=== PATIENT | female | born 1950 | race Caucasian/White ===

== ENCOUNTER 2016-10-05 09:00 | Day surgery (SDC) | payer OTHER ==
[2016-10-05] MEDS ORDERED: LACTATED RINGERS 1,000 ML IV ONE (09:12)
[2016-10-05] MEDS ORDERED: fentaNYL 250 MCG/5 ML VIAL IVP ONE (09:56)
[2016-10-05] MEDS ORDERED: MIDAZOLAM 2 MG/2 ML VIAL IVP ONE (09:56)
== END 2016-10-05 09:01 | disposition home or self-care (01) ==
PROC: 0DJD8ZZ Inspection of Lower Intestinal Tract, Via Natural or Artificial Opening Endoscopic (ICD-10-PCS; principal; 2016-10-05 11:15)
DX: Z12.11 Encounter for screening for malignant neoplasm of colon (principal); K64.8 Other hemorrhoids; E11.9 Type 2 diabetes mellitus without complications; I10 Essential (primary) hypertension; K21.9 Gastro-esophageal reflux disease without esophagitis; F32.9 Major depressive disorder, single episode, unspecified
CPT/HCPCS: 45378; J3010; J7120

== ENCOUNTER 2017-10-04 09:18 | Outpatient (CLI) | payer OTHER ==
--- NOTE | 2017-10-06 15:17 | DEXA Report ---
DEXA SCAN: 10/04/2017 CLINICAL INDICATION: Postmenopausal. TECHNIQUE: Dual energy x-ray absorptiometry (DXA) was performed on a [employer] system. Regions measured are the AP spine, femoral neck, and, if needed, forearm. COMPARISON: None. In accordance with the International Society for Clinical Densitometry (ISCD) guidelines, data from previous exams may be reanalyzed using current recommendations and techniques. This is done to allow a more accurate basis for comparison with the current study. FINDINGS The data for the lumbar spine is as follows: REGION BMD (g/cm/cm) T-SCORE Z-SCORE L1 0.842 -2.4 -0.8 L2 0.836 -3.0 -1.5 L3 0.883 -2.6 -1.1 L4 0.919 -2.3 -0.8 TOTAL L1-L4 0.876 -2.5 -1.0 NOTE: All evaluable vertebrae are used for classification. The data for the hip is as follows: REGION BMD (g/cm/cm) T-SCORE Z-SCORE Neck 0.804 -1.7 -0.2 TOTAL 0.777 -1.8 -0.6 NOTE: The femoral neck or total proximal femur, whichever is lowest, is used for classification. IMPRESSION THE WHO CLASSIFICATION BASED ON THE INTERNATIONAL REFERENCE STANDARD IS OSTEOPOROSIS. THE FRACTURE RISK IS HIGH. RECOMMENDATION: Patients with diagnosis of osteoporosis or osteopenia should have regular bone mineral density assessment. For those eligible for Medicare, routine testing is allowed once every 2 years. Testing frequency can be increased for patients who have rapidly progressing disease or for those who are receiving medical therapy to restore bone mass. COMMENT: World Health Organization (WHO) definitions for osteoporosis and osteopenia: NORMAL BMD: T-score at 1.0 or higher, fracture risk is low. OSTEOPENIA BMD: T-score between 1.0 and -2.5, fracture risk is increased. OSTEOPOROSIS BMD: T-score at 2.5 or lower, fracture risk high. National Osteoporosis Foundation recommends: 1. Obtain adequate dietary calcium (at least 1200 mg per day) and vitamin D (400 -800 international units per day). 2. Participate, as appropriate, in regular weightbearing and muscle- strengthening exercise. 3. Avoid tobacco use and reduce alcohol and caffeine intake. 4. For more detailed information see the website at www.NOF.org. TD: 10/04/2017 12:59 [place]
== END 2017-10-04 09:19 | disposition home or self-care (01) ==
LOC: DI 09:18
PROVIDERS: ATTEND Family Medicine
DX: M81.0 Age-related osteoporosis without current pathological fracture (principal)
CPT/HCPCS: 77080

== ENCOUNTER 2017-10-15 08:00 | Outpatient (CLI) | payer OTHER | END 2017-10-15 08:01 | disposition home or self-care (01) | LOC: LAB.WCP 08:00 | PROVIDERS: ATTEND Family Medicine | DX: M81.0 Age-related osteoporosis without current pathological fracture (principal) | CPT/HCPCS: 36415; 82306 ==

== ENCOUNTER 2018-02-28 08:00 | Outpatient (CLI) | payer OTHER ==
[2018-02-28 12:31] LABS: ALBUMIN/GLOBULIN RATIO 1.3 (1.0-2.2); BILIRUBIN,TOTAL 0.4 mg/dL (0.2-1.0); CALCIUM 9.1 mg/dL (8.5-10.3); CREATININE 0.6 mg/dL (0.4-1.0); TOTAL PROTEIN 7.1 g/dL (6.7-8.2)
[2018-02-28 12:36] LABS: HB2 TOTAL 15.3 g/dL; HEMOGLOBIN A1C 0.73 g/dL; HEMOGLOBIN A1C % 6.5 % (4.6-6.2)
== END 2018-02-28 08:01 | disposition home or self-care (01) ==
LOC: LAB.WCP 08:00
PROVIDERS: ATTEND Family Medicine
DX: I10 Essential (primary) hypertension (principal); E11.9 Type 2 diabetes mellitus without complications; E78.9 Disorder of lipoprotein metabolism, unspecified
CPT/HCPCS: 36415; 80053; 83036

== ENCOUNTER 2018-04-07 08:00 | Outpatient (CLI) | payer OTHER ==
[2018-04-07 12:54] LABS: THYROID STIMULATING HORMONE 1.98 uIU/mL (0.34-5.60)
== END 2018-04-07 08:01 | disposition home or self-care (01) ==
LOC: LAB.WCP 08:00
PROVIDERS: ATTEND Psychiatry & Neurology Neurology
DX: R26.89 Other abnormalities of gait and mobility (principal)
CPT/HCPCS: 36415; 82607; 82746; 84425; 84443; 84446

== ENCOUNTER 2018-06-27 13:26 | Outpatient (CLI) | payer OTHER | END 2018-06-27 13:27 | disposition home or self-care (01) | LOC: LAB.WCP 13:26 | PROVIDERS: ATTEND Psychiatry & Neurology Neurology | DX: E53.8 Deficiency of other specified B group vitamins (principal) | CPT/HCPCS: 36415; 82607; 83921 ==

== ENCOUNTER 2018-10-19 08:47 | Outpatient (CLI) | payer OTHER ==
[2018-10-19 12:43] LABS: ALBUMIN 4.2 g/dL (3.2-5.5); ALBUMIN/GLOBULIN RATIO 1.5 (1.0-2.2); ALKALINE PHOSPHATASE 41 IU/L (42-121); ALT ALANINE AMINOTRANSFERASE 21 IU/L (10-60); AST ASPARTATE AMINOTRANSFERASE 18 IU/L (10-42); BILIRUBIN,TOTAL 0.6 mg/dL (0.2-1.0); BUN - BLOOD UREA NITROGEN 16 mg/dL (6-20); CALCIUM 9.5 mg/dL (8.5-10.3); CARBON DIOXIDE - CO2 29 mmol/L (21-32); CHLORIDE 98 mmol/L (101-111); CHOL/HDL RATIO 2.3 (<4.4); CHOLESTEROL 165 mg/dL; CREATININE 0.6 mg/dL (0.4-1.0); GFR - MDRD 100 (>89); GLUCOSE 130 mg/dL (70-100); HDL CHOLESTEROL 73 mg/dL; LDL CHOLESTEROL,CALCULATED 67 mg/dL; LDL/HDL RATIO 0.9 (<4.4); SODIUM 135 mmol/L (135-145); VLDL CHOLESTEROL 25 mg/dL
[2018-10-20 19:07] LABS: HB2 TOTAL 14.7 g/dL; HEMOGLOBIN A1C 0.66 g/dL; HEMOGLOBIN A1C % 6.3 % (4.6-6.2)
== END 2018-10-19 23:59 | disposition home or self-care (01) ==
LOC: LAB.WCP 08:47
PROVIDERS: ATTEND Family Medicine
DX: M81.0 Age-related osteoporosis without current pathological fracture (principal); I10 Essential (primary) hypertension; E11.9 Type 2 diabetes mellitus without complications; E78.5 Hyperlipidemia, unspecified
CPT/HCPCS: 36415; 80053; 80061; 82043; 83036; 83721

== ENCOUNTER 2018-12-14 12:00 | Outpatient (CLI) | payer OTHER ==
--- NOTE | 2018-12-14 16:55 | Mammography Report ---
Reason: ANNUAL SCREENING Procedure Date: 12/14/2018 Accession Number: [id number] / [id number] Procedure: KEVEN - Screening Mammo w/Anish CPT Code: FULL RESULT: EXAM: Screening Mammo w/Anish DATE: 12/14/2018 12:47 PM CLINICAL HISTORY: Routine screening. No reported personal history of breast cancer. Family history breast cancer in sister age 62. TECHNIQUE: Bilateral CC and MLO views were obtained. COMPARISON: 08/04/2017 through 02/27/2014 FINDINGS: The breasts demonstrate scattered fibroglandular densities bilaterally. Bilateral breasts: There are no suspicious masses, calcifications or areas of distortion. IMPRESSION: Negative examination RECOMMENDATION: Routine annual screening unless otherwise clinically indicated. BI-RADS CATEGORY 1: Negative STANDARD QUALIFYING STATEMENTS: 1. This examination was not reviewed with the aid of Computer-Aided Detection (CAD). 2. A negative or benign imaging report should not preclude biopsy if clinically suspicious findings are present. 3. Dense breasts may obscure an underlying neoplasm. 4. This examination was reviewed with the aid of 3D breast imaging (tomosynthesis).
== END 2018-12-14 12:01 | disposition home or self-care (01) ==
LOC: DI 12:00
DX: Z12.31 Encounter for screening mammogram for malignant neoplasm of breast (principal); Z80.3 Family history of malignant neoplasm of breast
CPT/HCPCS: 77063; 77067

== ENCOUNTER 2019-08-17 07:00 | Outpatient (CLI) | payer OTHER ==
[2019-08-17 13:06] LABS: CREATININE 0.5 mg/dL (0.4-1.0)
[2019-08-17 13:32] LABS: HB2 TOTAL 13.6 g/dL; HEMOGLOBIN A1C 0.68 g/dL; HEMOGLOBIN A1C % 6.7 % (4.6-6.2)
== END 2019-08-17 23:59 | disposition home or self-care (01) ==
LOC: LAB.WCP 07:00
PROVIDERS: ATTEND Family Medicine
DX: Z00.00 Encounter for general adult medical examination without abnormal findings (principal); M81.0 Age-related osteoporosis without current pathological fracture; I10 Essential (primary) hypertension; E11.9 Type 2 diabetes mellitus without complications; E78.5 Hyperlipidemia, unspecified
CPT/HCPCS: 36415; 80048; 82043; 82570; 83036

== ENCOUNTER 2019-12-06 08:00 | Outpatient (CLI) | payer MEDICARE, OTHER ==
[2019-12-06 12:41] LABS: BUN - BLOOD UREA NITROGEN 13 mg/dL (6-20); CALCIUM 9.3 mg/dL (8.5-10.3); CARBON DIOXIDE - CO2 27 mmol/L (21-32); CHLORIDE 94 mmol/L (101-111); CHOL/HDL RATIO 2.4 (<4.4); CHOLESTEROL 142 mg/dL; CREATININE 0.6 mg/dL (0.4-1.0); GFR - MDRD 100 (>89); GLUCOSE 118 mg/dL (70-100); HDL CHOLESTEROL 58 mg/dL; LDL CHOLESTEROL,CALCULATED 59 mg/dL; SODIUM 130 mmol/L (135-145); VLDL CHOLESTEROL 25 mg/dL
[2019-12-06 12:49] LABS: CREATININE,URINE 54.1 mg/dL; MICROALBUM/CREATININE RATIO,UR 12.9 ug/mg (<30.0); MICROALBUMIN,URINE 0.7 mg/dL (0-300.0)
[2019-12-06 13:24] LABS: HB2 TOTAL 13.6 g/dL; HEMOGLOBIN A1C 0.66 g/dL; HEMOGLOBIN A1C % 6.6 % (4.6-6.2)
== END 2019-12-06 23:59 | disposition home or self-care (01) ==
LOC: LAB.WCP 08:00
PROVIDERS: ATTEND Family Medicine
DX: I10 Essential (primary) hypertension (principal); G47.00 Insomnia, unspecified; E11.9 Type 2 diabetes mellitus without complications
CPT/HCPCS: 36415; 80048; 80061; 82043; 82570; 83036; 83721

== ENCOUNTER 2019-12-20 07:00 | Outpatient (CLI) | payer MEDICARE | END 2019-12-20 23:59 | disposition home or self-care (01) | LOC: LAB.WCP 07:00 | PROVIDERS: ATTEND Family Medicine | DX: E87.1 Hypo-osmolality and hyponatremia (principal) | CPT/HCPCS: 84300 ==

== ENCOUNTER 2020-01-01 13:02 | Outpatient (CLI) | payer MEDICARE ==
--- NOTE | 2020-01-01 13:59 | Mammography Report ---
Reason: CHANGES IN NIPPLE Procedure Date: 01/01/2020 Accession Number: [id number] / [id number] Procedure: KEVEN - Diagnostic Dig Bilat CPT Code: Final Report FULL RESULT: EXAM: Diagnostic Dig Bilat DATE: 01/01/2020 1:52 PM CLINICAL HISTORY: Diagnostic examination. Changes in the nipple on physical examination with itching/pain on the right. TECHNIQUE: (B) - Bilateral CC and MLO views were obtained. Right ML images are obtained. COMPARISON: 12/14/2018 through 05/01/2015 PARENCHYMAL PATTERN: (F) - The breast(s) demonstrate(s) diffuse fatty replacement. FINDINGS: There are no suspicious masses, calcifications, or areas of distortion. IMPRESSION: Negative examination. BI-RADS category 1. RECOMMENDATION: (ANNUAL) - Recommend routine annual screening mammography. BI-RADS CATEGORY: (1) - Negative. STANDARD QUALIFYING STATEMENTS: 1. This examination was not reviewed with the aid of Computer-Aided Detection (CAD). 2. A negative or benign imaging report should not preclude biopsy if clinically suspicious findings are present. 3. Dense breasts may obscure an underlying neoplasm. 4. This examination was reviewed with the aid of 3D breast imaging (tomosynthesis).
== END 2020-01-01 13:03 | disposition home or self-care (01) ==
LOC: DI 13:02
PROVIDERS: ATTEND Family Medicine
DX: N64.59 Other signs and symptoms in breast (principal); N64.52 Nipple discharge
CPT/HCPCS: 77066

== ENCOUNTER 2020-01-02 08:00 | Outpatient (CLI) | payer MEDICARE ==
[2020-01-02 16:49] LABS: CALCIUM 9.5 mg/dL (8.5-10.3); CREATININE 0.5 mg/dL (0.4-1.0)
== END 2020-01-02 23:59 | disposition home or self-care (01) ==
LOC: LAB.WCP 08:00
PROVIDERS: ATTEND Psychiatry & Neurology Neurology
DX: G25.3 Myoclonus (principal); E87.1 Hypo-osmolality and hyponatremia
CPT/HCPCS: 36415; 80048; 84300

== ENCOUNTER 2020-07-18 08:00 | Outpatient (CLI) | payer MEDICARE ==
[2020-07-18 12:14] LABS: ALBUMIN 4.1 g/dL (3.2-5.5); ALBUMIN/GLOBULIN RATIO 1.3 (1.0-2.2); ALKALINE PHOSPHATASE 44 IU/L (42-121); ALT ALANINE AMINOTRANSFERASE 16 IU/L (10-60); AST ASPARTATE AMINOTRANSFERASE 14 IU/L (10-42); BASOPHILS # (AUTO) 0.1 10^3/uL (0.0-0.1); BASOPHILS % (AUTO) 0.7 %; BILIRUBIN,TOTAL 0.6 mg/dL (0.2-1.0); BUN - BLOOD UREA NITROGEN 15 mg/dL (6-20); CALCIUM 9.6 mg/dL (8.5-10.3); CARBON DIOXIDE - CO2 28 mmol/L (21-32); CHLORIDE 97 mmol/L (101-111); CHOL/HDL RATIO 2.4 (<4.4); CHOLESTEROL 170 mg/dL; CREATININE 0.5 mg/dL (0.4-1.0); EOSINOPHILS # (AUTO) 0.1 10^3/uL (0.0-0.7); GLUCOSE 125 mg/dL (70-100); HDL CHOLESTEROL 72 mg/dL; HGB - HEMOGLOBIN 14.1 g/dL (12.0-16.0); LDL CHOLESTEROL,CALCULATED 80 mg/dL; LDL/HDL RATIO 1.1 (<4.4); LYMPHOCYTES # (AUTO) 0.9 10^3/uL (1.5-3.5); LYMPHOCYTES % (AUTO) 13.6 %; MEAN CORPUSCULAR HEMOGLOBIN 29.3 pg (27.0-31.0); MEAN CORPUSCULAR VOLUME 91.5 fL (81.0-99.0); MEAN PLATELET VOLUME 10.4 fL (7.9-10.8); MONOCYTES # (AUTO) 0.4 10^3/uL (0.0-1.0); MONOCYTES % (AUTO) 5.7 %; NEUTROPHILS # (AUTO) 5.3 10^3/uL (1.5-6.6); NEUTROPHILS % (AUTO) 77.7 %; PLT - PLATELET COUNT 380 10^3/uL (130-450); RED BLOOD COUNT 4.81 10^6/uL (4.20-5.40); RED CELL DISTRIBUTION WIDTH 12.3 % (12.0-15.0); SODIUM 137 mmol/L (135-145); TOTAL PROTEIN 7.3 g/dL (6.7-8.2); VLDL CHOLESTEROL 18 mg/dL; WHITE BLOOD COUNT 6.8 x10^3/uL (4.8-10.8)
== END 2020-07-18 23:59 | disposition home or self-care (01) ==
LOC: LAB.WCP 08:00
PROVIDERS: ATTEND Family Medicine
DX: E87.1 Hypo-osmolality and hyponatremia (principal); E11.9 Type 2 diabetes mellitus without complications; I10 Essential (primary) hypertension; E78.5 Hyperlipidemia, unspecified
CPT/HCPCS: 36415; 80053; 80061; 83721; 84443; 85025

== ENCOUNTER 2021-01-23 07:58 | Outpatient (CLI) | payer MEDICARE ==
[2021-01-23 12:30] LABS: CALCIUM 9.5 mg/dL (8.5-10.3); CREATININE 0.6 mg/dL (0.4-1.0); POTASSIUM 4.2 mmol/L (3.5-5.0)
[2021-01-23 12:42] LABS: CREATININE,URINE 77.2 mg/dL; MICROALBUM/CREATININE RATIO,UR 3.9 ug/mg (<30.0); MICROALBUMIN,URINE 0.3 mg/dL (0-300.0)
[2021-01-23 18:19] LABS: ESTIMATED AVERAGE GLUCOSE 134 mg/dL (70-100); HEMOGLOBIN A1c% 6.3 % (4.27-6.07)
== END 2021-01-23 23:59 | disposition home or self-care (01) ==
LOC: LAB.WCP 07:58
PROVIDERS: ATTEND Family Medicine
DX: E11.9 Type 2 diabetes mellitus without complications (principal); I10 Essential (primary) hypertension; E78.5 Hyperlipidemia, unspecified
CPT/HCPCS: 36415; 80048; 82043; 82570; 83036

== ENCOUNTER 2021-02-04 09:24 | Outpatient (CLI) | payer MEDICARE ==
--- NOTE | 2021-02-06 08:30 | Mammography Report ---
BILATERAL DIGITAL SCREENING MAMMOGRAM 3D/2D: 02/04/2021 CLINICAL: Family history of breast cancer. Routine screening. Comparison is made to exams dated: 01/01/2020 mammogram, 12/14/2018 mammogram, 08/04/2017 mammogram, 08/2016 mammogram, 05/01/2015 mammogram, and 02/27/2014 mammogram - [facility]. There are scattered fibroglandular elements in both breasts. There is a new oval equal density focal asymmetry with an indistinct and circumscribed margin in the right breast at 3 o'clock anterior depth. No other significant masses, calcifications, or other findings are seen in either breast. IMPRESSION: INCOMPLETE: NEEDS ADDITIONAL IMAGING EVALUATION The new oval equal density focal asymmetry in the right breast is indeterminate. Mediolateral and sp ot compression views as well as additional views with possible ultrasound are recommended. This exam was interpreted at Station ID: [id number]. NOTE: For mammograms, a report in lay terms will be sent to the patient. Approximately 15% of breast malignancies will not be visualized mammographically. In the management of a palpable breast mass, a negative mammogram must not discourage biopsy of a clinically suspicious lesion. Electronically Signed By: Sandip Stiles M.D. ddp/penrad:02/04/2021 09:58:01 ACR BI-RADS Category 0: Incomplete 3340F PARENCHYMAL PATTERN: (A) - The breast(s) demonstrate(s) scattered fibroglandular densities. BI-RADS CATEGORY: (0) - 0 Mammo and [place] [id number] Immediate follow-up LATERALITY: (B)
== END 2021-02-04 09:25 | disposition home or self-care (01) ==
LOC: DI.N 09:24
DX: Z12.31 Encounter for screening mammogram for malignant neoplasm of breast (principal); R92.8 Other abnormal and inconclusive findings on diagnostic imaging of breast; Z80.3 Family history of malignant neoplasm of breast

== ENCOUNTER 2021-02-28 10:44 | Outpatient (CLI) | payer MEDICARE ==
--- NOTE | 2021-02-28 14:56 | DEXA Report ---
PROCEDURE: Dexa Spine and/or Hip INDICATIONS: POST MENOPAUSAL TECHNIQUE: Dual energy x-ray absorptiometry (DXA) was performed on a [employer] System. Regions measur ed are the AP Spine, femoral neck, and if needed forearm. COMPARISON: 10/04/2017 FINDINGS: Lumbar Spine: Bone Mineral Density 0.895 g/cm/cm,T score -2.4, osteopenia Left Femoral Neck: Bone Mineral Density 0.754 g/cm/cm, T score -2.0, osteopenia (T score greater or equal to -1.0: NORMAL) (T score from -1.1 to -2.4: OSTEOPENIA) (T score less than or equal to -2.5 to: OSTEOPOROSIS) Impression: OSTEOPENIA. Patient is at increased risk for fracture. Patients with diagnosis of osteoporosis or osteopenia should have regular bone mineral density assess ment. For those eligible for Medicare, routine testing is allowed once every 2 years. Testing frequ ency can be increased for patients who have rapidly progressing disease or for those who are receivin g medical therapy to restore bone mass. Reviewed by: Adrien Do MD on 02/28/2021 2:54 PM PDT Approved by: Adrien Do MD on 02/28/2021 2:54 PM PDT Station ID: [id number]
== END 2021-02-28 10:45 | disposition home or self-care (01) ==
LOC: DI 10:44
PROVIDERS: ATTEND Physician Assistant Medical
DX: M85.89 Other specified disorders of bone density and structure, multiple sites (principal)

== ENCOUNTER 2021-03-10 11:14 | Outpatient (CLI) | payer MEDICARE ==
--- NOTE | 2021-03-11 07:56 | Ultrasound Report ---
LIMITED ULTRASOUND OF RIGHT BREAST: 03/10/2021 CLINICAL: Patient returns today to evaluate a focal asymmetry in the right breast. Comparison is made to exams dated: 03/10/2021 mammogram, 02/04/2021 mammogram, 01/01/2020 mammogram, 11/26 mammogram, 08/04/2017 mammogram, and 07/08/2016 mammogram - [facility]. Color flow and real-time ultrasound of the right breast 3 o'clock, and retroareolar regions were perf ormed. Ibrahim scale images of the real-time examination were reviewed. There is a 0.4 cm x 0.2 cm x 0.2 cm oval cyst in the right breast at 3 o'clock anterior depth. This oval cyst is hypoechoic with a well-defined boundary and no posterior acoustic shadowing or enhanceme nt. Color flow imaging demonstrates that there is no vascularity present. IMPRESSION: PROBABLY BENIGN The 0.4 cm oval cyst in the right breast is consistent with a complicated cyst and is probably benign . A follow-up mammogram and an ultrasound in 6 months is recommended to demonstrate stability. Exam findings were conveyed to the patient. This exam was interpreted at Station ID: [id number]. Electronically Signed By: Hal De La Cruz M.D. slc/:03/10/2021 12:53:04 Ultrasound BI-RADS: 3 Probably benign BI-RADS CATEGORY: (3) - 3 Mammo and [place] [id number] 6 month follow-up LATERALITY: (B)
--- NOTE | 2021-03-11 07:56 | Mammography Report ---
UNILATERAL RIGHT DIGITAL DIAGNOSTIC MAMMOGRAM 3D/2D: 03/10/2021 CLINICAL: Patient returns today to evaluate a focal asymmetry in the right breast. Comparison is made to exams dated: 02/04/2021 mammogram, 01/01/2020 mammogram, 12/14/2018 mammogram, 08/04/2017 mammogram, 07/08/2016 mammogram, and 05/01/2015 mammogram - [facility]. The t issue of right breast is predominantly fatty. There is a 0.4 cm oval equal density focal asymmetry with a circumscribed margin in the right breast at 3 o'clock anterior depth. No other significant masses or calcifications are seen in the breast. IMPRESSION: INCOMPLETE: NEEDS ADDITIONAL IMAGING EVALUATION The 0.4 cm oval equal density focal asymmetry in the right breast resembles a cyst and is indetermina te. A targeted ultrasound is recommended and will immediately follow. This exam was interpreted at Station ID: [id number]. NOTE: For mammograms, a report in lay terms will be sent to the patient. Approximately 15% of breast malignancies will not be visualized mammographically. In the management of a palpable breast mass, a negative mammogram must not discourage biopsy of a clinically suspicious lesion. Electronically Signed By: Hal De La Cruz M.D. slc/:03/10/2021 12:50:20 ACR BI-RADS Category 0: Incomplete 3340F PARENCHYMAL PATTERN: (F) - The breast(s) demonstrate(s) diffuse fatty replacement. BI-RADS CATEGORY: (0) - 0 Ultrasound [id number] Immediate follow-up LATERALITY: (B)
== END 2021-03-10 11:15 | disposition home or self-care (01) ==
LOC: DI 11:14
PROVIDERS: ATTEND Physician Assistant Medical
DX: N60.01 Solitary cyst of right breast (principal)

== ENCOUNTER 2021-07-23 09:53 | Outpatient (CLI) | payer MEDICARE ==
[2021-07-23 12:20] LABS: BASOPHILS # (AUTO) 0.1 10^3/uL (0.0-0.1); BASOPHILS % (AUTO) 0.7 %; EOSINOPHILS # (AUTO) 0.1 10^3/uL (0.0-0.7); EOSINOPHILS % (AUTO) 1.1 %; LYMPHOCYTES # (AUTO) 1.5 10^3/uL (1.5-3.5); LYMPHOCYTES % (AUTO) 20.6 %; MEAN CORPUSCULAR HEMOGLOBIN 29.4 pg (27.0-31.0); MEAN CORPUSCULAR HGB CONC 32.6 g/dL (32.0-36.0); MEAN CORPUSCULAR VOLUME 90.3 fL (81.0-99.0); MEAN PLATELET VOLUME 10.2 fL (7.9-10.8); MONOCYTES # (AUTO) 0.6 10^3/uL (0.0-1.0); MONOCYTES % (AUTO) 7.5 %; NEUTROPHILS # (AUTO) 5.1 10^3/uL (1.5-6.6); NEUTROPHILS % (AUTO) 69.7 %; PLT - PLATELET COUNT 414 10^3/uL (130-450); RED BLOOD COUNT 4.76 10^6/uL (4.20-5.40); RED CELL DISTRIBUTION WIDTH 12.6 % (12.0-15.0); WHITE BLOOD COUNT 7.3 x10^3/uL (4.8-10.8)
[2021-07-23 13:18] LABS: ALBUMIN 4.3 g/dL (3.2-5.5); ALBUMIN/GLOBULIN RATIO 1.4 (1.0-2.2); ALKALINE PHOSPHATASE 46 IU/L (42-121); ALT ALANINE AMINOTRANSFERASE 19 IU/L (10-60); AST ASPARTATE AMINOTRANSFERASE 15 IU/L (10-42); BILIRUBIN,TOTAL 0.6 mg/dL (0.2-1.0); BUN - BLOOD UREA NITROGEN 13 mg/dL (6-20); CALCIUM 9.7 mg/dL (8.5-10.3); CARBON DIOXIDE - CO2 30 mmol/L (21-32); CHLORIDE 98 mmol/L (101-111); CHOL/HDL RATIO 2.6 (<4.4); CHOLESTEROL 183 mg/dL; CREATININE 0.5 mg/dL (0.4-1.0); GFR - MDRD 122 (>89); GLUCOSE 133 mg/dL (70-100); HDL CHOLESTEROL 70 mg/dL; LDL CHOLESTEROL,CALCULATED 85 mg/dL; LDL/HDL RATIO 1.2 (<4.4); POTASSIUM 4.2 mmol/L (3.5-5.0); SODIUM 138 mmol/L (135-145); TOTAL PROTEIN 7.4 g/dL (6.7-8.2); TRIGLYCERIDES 140 mg/dL; VLDL CHOLESTEROL 28 mg/dL
[2021-07-23 13:22] LABS: THYROID STIMULATING HORMONE 1.75 uIU/mL (0.34-5.60)
[2021-07-23 13:27] LABS: ESTIMATED AVERAGE GLUCOSE 143 mg/dL (70-100); HEMOGLOBIN A1c% 6.6 % (4.27-6.07)
[2021-07-23 18:34] LABS: CREATININE,URINE 34.6 mg/dL
[2021-07-23 19:05] LABS: MICROALBUMIN,URINE < 0.2 mg/dL (0-300.0)
== END 2021-07-23 23:59 | disposition home or self-care (01) ==
LOC: LAB.WCP 09:53
PROVIDERS: ATTEND Physician Assistant Medical
DX: E11.9 Type 2 diabetes mellitus without complications (principal); I10 Essential (primary) hypertension
CPT/HCPCS: 36415; 80053; 80061; 82043; 82570; 83036; 83721; 84443; 85025

== ENCOUNTER 2021-10-08 12:29 | Outpatient (CLI) | payer MEDICARE ==
--- NOTE | 2021-10-09 07:25 | Ultrasound Report ---
LIMITED ULTRASOUND OF RIGHT BREAST: 10/08/2021 CLINICAL: Short term follow up of the right breast. Patient returns for a 6 month follow up of the ri ght breast. Comparison is made to exams dated: 10/08/2021 mammogram, 03/10/2021 ultrasound, 03/10/2021 mammogram, mammogram, 01/01/2020 mammogram, and 12/14/2018 mammogram - [facility]. Color flow and real-time ultrasound of the right breast 3 o'clock, and retroareolar regions were perf ormed. Ibrahim scale images of the real-time examination were reviewed. There is a 0.4 cm x 0.2 cm x 0.2 cm oval cyst in the right breast at 3 o'clock in the retroareolar re gion. This oval cyst is hypoechoic with a well-defined boundary and no posterior acoustic shadowing or enhancement. This abnormality is not significantly changed. Color flow imaging demonstrates that there is no vascularity present. IMPRESSION: PROBABLY BENIGN The 0.4 cm x 0.2 cm x 0.2 cm oval cyst in the right breast is consistent with a complicated cyst and is probably benign. A follow-up diagnostic mammogram and right breast ultrasound in 6 months is recommended to demonstrat e stability. This exam was interpreted at Station ID: [id number]. Electronically Signed By: James Galindo M.D. ar/:10/08/2021 13:41:13 Ultrasound BI-RADS: 3 Probably benign BI-RADS CATEGORY: (3) - 3 Mammo and US [id number] 6 month follow-up LATERALITY: (B)
--- NOTE | 2021-10-09 07:25 | Mammography Report ---
UNILATERAL RIGHT DIGITAL DIAGNOSTIC MAMMOGRAM 3D/2D: 10/08/2021 CLINICAL: Patient returns for a 6 month follow up of the right breast. Comparison is made to exams dated: 03/10/2021 ultrasound, 03/10/2021 mammogram, 02/04/2021 mammogram, mammogram, 12/14/2018 mammogram, and 08/04/2017 mammogram - [facility]. The tissue of right breast is predominantly fatty. There is a 0.4 cm oval equal density focal asymmetry with a circumscribed margin in the right breast at 3 o'clock anterior depth. This is not significantly changed. No other significant masses or calcifications are seen in the breast. IMPRESSION: INCOMPLETE: NEEDS ADDITIONAL IMAGING EVALUATION The 0.4 cm oval equal density focal asymmetry in the right breast resembles a cyst and is indetermina te. An ultrasound is recommended. This exam was interpreted at Station ID: [id number]. NOTE: For mammograms, a report in lay terms will be sent to the patient. Approximately 15% of breast malignancies will not be visualized mammographically. In the management of a palpable breast mass, a negative mammogram must not discourage biopsy of a clinically suspicious lesion. Electronically Signed By: James gold/eduardo:10/08/2021 13:39:55 ACR BI-RADS Category 0: Incomplete 3340F PARENCHYMAL PATTERN: (F) - The breast(s) demonstrate(s) diffuse fatty replacement. BI-RADS CATEGORY: (0) - 0 Ultrasound [id number] Immediate follow-up LATERALITY: (R)
== END 2021-10-08 12:30 | disposition home or self-care (01) ==
LOC: DI 12:29
PROVIDERS: ATTEND Physician Assistant Medical
DX: R92.8 Other abnormal and inconclusive findings on diagnostic imaging of breast (principal)

== ENCOUNTER 2022-02-13 09:02 | Outpatient (CLI) | payer MEDICARE ==
[2022-02-13 13:05] LABS: CALCIUM 9.6 mg/dL (8.5-10.3); CREATININE 0.6 mg/dL (0.4-1.0); ESTIMATED AVERAGE GLUCOSE 146 mg/dL (70-100); HEMOGLOBIN A1c% 6.7 % (4.27-6.07)
== END 2022-02-13 09:03 | disposition home or self-care (01) ==
LOC: LAB.N 09:02
PROVIDERS: ATTEND Physician Assistant Medical
DX: E11.9 Type 2 diabetes mellitus without complications (principal)
CPT/HCPCS: 36415; 80048; 83036

== ENCOUNTER 2022-04-08 09:19 | Outpatient (CLI) | payer MEDICARE ==
--- NOTE | 2022-04-09 14:35 | Ultrasound Report ---
LIMITED ULTRASOUND OF RIGHT BREAST: 04/08/2022 CLINICAL: Short term follow up of the right breast. Rt breast asymmetry/ "mass". Comparison is made to exams dated: 04/08/2022 mammogram, 10/08/2021 ultrasound, 10/08/2021 mammogram, ultrasound, 03/10/2021 mammogram, and 02/04/2021 mammogram - [facility]. Color flow and real-time ultrasound of the right breast 3 o'clock, and retroareolar regions were perf ormed. Ibrahim scale images of the real-time examination were reviewed. There is a stable benign 0.4 cm x 0.2 cm x 0.3 cm oval cyst in the right breast at 4 o'clock in the r etroareolar region. This oval cyst is hypoechoic with a well-defined boundary and no posterior acous tic shadowing or enhancement. Color flow imaging demonstrates that there is no vascularity present. IMPRESSION: BENIGN There is no sonographic evidence of malignancy. The stable 0.4 cm x 0.2 cm x 0.3 cm oval cyst in the right breast is consistent with a complicated cy st and is benign. Additionally this finding has been stable on mammogram for 2 years. Return to annual mammogram screening schedule is recommended. This exam was interpreted at Station ID: [id number]. Electronically Signed By: Kwaku Burrell acr/:04/08/2022 10:21:58 Entry: - 04/09/2022 12:41:57 Ultrasound BI-RADS: 2 Benign BI-RADS CATEGORY: (2) - 2 RECOMMENDATION: (ANNUAL) - Recommend routine annual screening mammography. [id number] 1 year screening LATERALITY: (B)
--- NOTE | 2022-04-09 14:35 | Mammography Report ---
BILATERAL DIGITAL DIAGNOSTIC MAMMOGRAM 3D/2D: 04/08/2022 CLINICAL: Patient returns for a 6 month follow up of the right breast, due for bilateral exam. Comparison is made to exams dated: 10/08/2021 mammogram, 03/10/2021 mammogram, 02/04/2021 mammogram, 01/01/2020 mammogram, 12/14/2018 mammogram, and 08/04/2017 mammogram - [facility]. The t issue of both breasts is predominantly fatty. There is a 0.4 cm oval equal density focal asymmetry with a circumscribed margin in the right breast at 3 o'clock anterior depth. This is not significantly changed. No other significant masses, calcifications, or other findings are seen in either breast. IMPRESSION: INCOMPLETE: NEEDS ADDITIONAL IMAGING EVALUATION The 0.4 cm oval equal density focal asymmetry in the right breast resembles a cyst and is indetermina te. An ultrasound is recommended. Based on the Tyrer Cuzick model (a risk assessment model) the patients lifetime risk is 7.4% and her 10 year risk is 4.4%. According to the ACR, ACS, and NCCN guidelines, an annual breast MRI exam norberto g with mammogram is recommended if the patients lifetime risk is 20% or greater. This exam was interpreted at Station ID: [id number]. NOTE: For mammograms, a report in lay terms will be sent to the patient. Approximately 15% of breast malignancies will not be visualized mammographically. In the management of a palpable breast mass, a negative mammogram must not discourage biopsy of a clinically suspicious lesion. Electronically Signed By: Kwaku Burrell acr/:04/08/2022 09:52:52 ACR BI-RADS Category 0: Incomplete 3340F PARENCHYMAL PATTERN: (F) - The breast(s) demonstrate(s) diffuse fatty replacement. BI-RADS CATEGORY: (0) - 0 Ultrasound [id number] Immediate follow-up LATERALITY: (B)
== END 2022-04-08 09:20 | disposition home or self-care (01) ==
LOC: DI 09:19
PROVIDERS: ATTEND Physician Assistant Medical
DX: N60.01 Solitary cyst of right breast (principal)

== ENCOUNTER 2022-08-13 08:09 | Outpatient (CLI) | payer MEDICARE ==
[2022-08-13 12:33] LABS: BASOPHILS # (AUTO) 0.1 10^3/uL (0.0-0.1); BASOPHILS % (AUTO) 0.7 %; EOSINOPHILS # (AUTO) 0.1 10^3/uL (0.0-0.7); EOSINOPHILS % (AUTO) 1.4 %; HCT - HEMATOCRIT 42.8 % (37.0-47.0); LYMPHOCYTES # (AUTO) 1.5 10^3/uL (1.5-3.5); LYMPHOCYTES % (AUTO) 20.3 %; MEAN CORPUSCULAR HEMOGLOBIN 29.2 pg (27.0-31.0); MEAN CORPUSCULAR HGB CONC 32.7 g/dL (32.0-36.0); MEAN CORPUSCULAR VOLUME 89.4 fL (81.0-99.0); MEAN PLATELET VOLUME 10.4 fL (7.9-10.8); MONOCYTES # (AUTO) 0.5 10^3/uL (0.0-1.0); MONOCYTES % (AUTO) 6.4 %; NEUTROPHILS # (AUTO) 5.2 10^3/uL (1.5-6.6); NEUTROPHILS % (AUTO) 70.8 %; PLT - PLATELET COUNT 436 10^3/uL (130-450); RED BLOOD COUNT 4.79 10^6/uL (4.20-5.40); RED CELL DISTRIBUTION WIDTH 12.3 % (12.0-15.0); WHITE BLOOD COUNT 7.4 x10^3/uL (4.8-10.8)
[2022-08-13 12:51] LABS: ALBUMIN 4.3 g/dL (3.2-5.5); ALBUMIN/GLOBULIN RATIO 1.4 (1.0-2.2); ALKALINE PHOSPHATASE 45 IU/L (42-121); ALT ALANINE AMINOTRANSFERASE 18 IU/L (10-60); AST ASPARTATE AMINOTRANSFERASE 17 IU/L (10-42); BILIRUBIN,TOTAL 0.5 mg/dL (0.2-1.0); BUN - BLOOD UREA NITROGEN 15 mg/dL (6-20); CALCIUM 9.7 mg/dL (8.5-10.3); CARBON DIOXIDE - CO2 30 mmol/L (21-32); CHLORIDE 96 mmol/L (101-111); CHOL/HDL RATIO 2.7 (<4.4); CHOLESTEROL 180 mg/dL; CREATININE 0.6 mg/dL (0.4-1.0); GFR - MDRD 99 (>89); GLUCOSE 139 mg/dL (70-100); HDL CHOLESTEROL 66 mg/dL; LDL CHOLESTEROL,CALCULATED 75 mg/dL; LDL/HDL RATIO 1.1 (<4.4); POTASSIUM 4.2 mmol/L (3.5-5.0); SODIUM 135 mmol/L (135-145); TOTAL PROTEIN 7.3 g/dL (6.7-8.2); TRIGLYCERIDES 195 mg/dL; VLDL CHOLESTEROL 39 mg/dL
[2022-08-13 12:59] LABS: CREATININE,URINE 39.7 mg/dL; MICROALBUMIN,URINE 0.2 mg/dL (0-300.0); THYROID STIMULATING HORMONE 2.55 uIU/mL (0.34-5.60)
[2022-08-13 15:36] LABS: ESTIMATED AVERAGE GLUCOSE 140 mg/dL (70-100); HEMOGLOBIN A1c% 6.5 % (4.27-6.07)
== END 2022-08-13 08:10 | disposition home or self-care (01) ==
LOC: LAB.N 08:09
PROVIDERS: ATTEND Physician Assistant Medical
DX: E11.9 Type 2 diabetes mellitus without complications (principal); I10 Essential (primary) hypertension
CPT/HCPCS: 36415; 80053; 80061; 82043; 82570; 83036; 83721; 84443; 85025

== ENCOUNTER 2023-02-11 08:08 | Outpatient (CLI) | payer MEDICARE ==
[2023-02-11 11:49] LABS: CALCIUM 9.3 mg/dL (8.5-10.3); CREATININE 0.6 mg/dL (0.4-1.0); POTASSIUM 4.2 mmol/L (3.5-5.0)
[2023-02-11 12:28] LABS: ESTIMATED AVERAGE GLUCOSE 148 mg/dL (70-100); HEMOGLOBIN A1c% 6.8 % (4.27-6.07)
== END 2023-02-11 08:09 | disposition home or self-care (01) ==
LOC: LAB.N 08:08
PROVIDERS: ATTEND Physician Assistant Medical
DX: E11.9 Type 2 diabetes mellitus without complications (principal)
CPT/HCPCS: 36415; 80048; 83036

== ENCOUNTER 2023-05-13 09:14 | Outpatient (CLI) | payer MEDICARE ==
[2023-05-13 12:26] LABS: CALCIUM 9.5 mg/dL (8.5-10.3); CREATININE 0.6 mg/dL (0.6-1.3); POTASSIUM 4.2 mmol/L (3.5-4.5)
[2023-05-13 12:31] LABS: ESTIMATED AVERAGE GLUCOSE 143 mg/dL (70-100); HEMOGLOBIN A1c% 6.6 % (4.27-6.07)
== END 2023-05-13 09:15 | disposition home or self-care (01) ==
LOC: LAB.N 09:14
PROVIDERS: ATTEND Physician Assistant Medical
DX: E11.9 Type 2 diabetes mellitus without complications (principal)
CPT/HCPCS: 36415; 80048; 83036

== ENCOUNTER 2023-06-10 10:18 | Outpatient (CLI) | payer MEDICARE ==
--- NOTE | 2023-06-11 11:43 | Mammography Report ---
BILATERAL DIGITAL SCREENING MAMMOGRAM 3D/2D: 06/10/2023 CLINICAL: Routine screening. Comparison is made to exams dated: 04/08/2022 mammogram, 10/08/2021 mammogram, 03/10/2021 mammogram, 07/2021 mammogram, and 01/01/2020 mammogram - [facility]. Both breasts are almost entirely fatty (category a/<25% glandular tissue). No significant masses, calcifications, or other findings are seen in either breast. There has been no significant interval change. IMPRESSION: NEGATIVE There is no mammographic evidence of malignancy. A 1 year screening mammogram is recommended. Based on the Tyrer Cuzick model (a risk assessment model) the patients lifetime risk is 7.0% and her 10 year risk is 4.4%. According to the ACR, ACS, and NCCN guidelines, an annual breast MRI exam norberto g with mammogram is recommended if the patients lifetime risk is 20% or greater. This exam was interpreted at Station ID: [id number]. NOTE: For mammograms, a report in lay terms will be sent to the patient. Approximately 15% of breast malignancies will not be visualized mammographically. In the management of a palpable breast mass, a negative mammogram must not discourage biopsy of a clinically suspicious lesion. Electronically Signed By: Kwaku navarrete/eduardo:06/10/2023 14:40:28 letter sent: No_Letter ACR BI-RADS Category 1: Negative 3341F PARENCHYMAL PATTERN: (F) - The breast(s) demonstrate(s) diffuse fatty replacement. BI-RADS CATEGORY: (1) - 1 Mammogram [id number] 1 year screening LATERALITY: (B)
== END 2023-06-10 10:19 | disposition home or self-care (01) ==
LOC: DI 10:18
DX: Z12.31 Encounter for screening mammogram for malignant neoplasm of breast (principal)

== ENCOUNTER 2023-12-10 09:00 | Outpatient (CLI) | payer MEDICARE ==
[2023-12-10 12:54] LABS: BASOPHILS % (AUTO) 0.5 %; EOSINOPHILS # (AUTO) 0.1 10^3/uL (0.0-0.7); EOSINOPHILS % (AUTO) 1.3 %; HCT - HEMATOCRIT 43.3 % (37.0-47.0); HGB - HEMOGLOBIN 13.8 g/dL (12.0-16.0); LYMPHOCYTES # (AUTO) 1.5 10^3/uL (1.5-3.5); LYMPHOCYTES % (AUTO) 24.1 %; MEAN CORPUSCULAR HGB CONC 31.9 g/dL (32.0-36.0); MEAN PLATELET VOLUME 10.3 fL (7.9-10.8); MONOCYTES # (AUTO) 0.4 10^3/uL (0.0-1.0); MONOCYTES % (AUTO) 6.8 %; NEUTROPHILS # (AUTO) 4.3 10^3/uL (1.5-6.6); NEUTROPHILS % (AUTO) 67.1 %; PLT - PLATELET COUNT 409 10^3/uL (130-450); RED BLOOD COUNT 4.76 10^6/uL (4.20-5.40); RED CELL DISTRIBUTION WIDTH 12.3 % (12.0-15.0); WHITE BLOOD COUNT 6.3 x10^3/uL (4.8-10.8)
[2023-12-10 13:29] LABS: ALBUMIN 4.4 g/dL (3.2-5.5); ALBUMIN/GLOBULIN RATIO 1.8 (1.0-2.2); ALKALINE PHOSPHATASE 40 IU/L (42-121); ALT ALANINE AMINOTRANSFERASE 18 IU/L (10-60); AST ASPARTATE AMINOTRANSFERASE 12 IU/L (10-42); BILIRUBIN,TOTAL 0.4 mg/dL (0.2-1.0); BUN - BLOOD UREA NITROGEN 12 mg/dL (6-20); CALCIUM 9.9 mg/dL (8.5-10.3); CARBON DIOXIDE - CO2 32 mmol/L (21-32); CHLORIDE 98 mmol/L (101-111); CHOLESTEROL 177 mg/dL; CREATININE 0.5 mg/dL (0.6-1.3); GFR - MDRD 122 (>89); GLUCOSE 146 mg/dL (74-104); HDL CHOLESTEROL 60 mg/dL; LDL CHOLESTEROL,CALCULATED 84 mg/dL; LDL/HDL RATIO 1.4 (<4.4); POTASSIUM 4.2 mmol/L (3.5-4.5); SODIUM 135 mmol/L (135-145); TOTAL PROTEIN 6.9 g/dL (6.4-8.9); TRIGLYCERIDES 166 mg/dL (48-352); VLDL CHOLESTEROL 33 mg/dL
[2023-12-10 13:46] LABS: ESTIMATED AVERAGE GLUCOSE 148 mg/dL (70-100); HEMOGLOBIN A1c% 6.8 % (4.27-6.07)
== END 2023-12-10 09:01 | disposition home or self-care (01) ==
LOC: LAB.N 09:00
PROVIDERS: ATTEND Physician Assistant Medical
DX: I10 Essential (primary) hypertension (principal); E11.9 Type 2 diabetes mellitus without complications
CPT/HCPCS: 36415; 80053; 80061; 83036; 83721; 85025

== ENCOUNTER 2024-06-06 08:24 | Outpatient (CLI) | payer MEDICARE ==
[2024-06-06 12:17] LABS: CALCIUM 9.7 mg/dL (8.5-10.3); CREATININE 0.5 mg/dL (0.6-1.3); POTASSIUM 4.2 mmol/L (3.5-4.5)
[2024-06-06 12:27] LABS: ESTIMATED AVERAGE GLUCOSE 151 mg/dL (70-100); HEMOGLOBIN A1c% 6.9 % (4.27-6.07)
== END 2024-06-06 08:25 | disposition home or self-care (01) ==
LOC: LAB.N 08:24
PROVIDERS: ATTEND Physician Assistant Medical
DX: E11.9 Type 2 diabetes mellitus without complications (principal)
CPT/HCPCS: 36415; 80048; 83036